=== PATIENT | female | born 1950 | race Caucasian/White ===

== ENCOUNTER 2018-12-29 17:50 | Emergency (ER) | payer MEDICARE ==
[~2018-12-29] VITALS: Ht 172.7 cm; Wt 91.0 kg
[2018-12-29 18:23] LABS: HEMATOCRIT 32.8 % (37.0-47.0); HEMOGLOBIN 10.6 g/dl (12.0-16.0); IMMATURE GRANULOCYTES 0.9 % (0.0-5.0); MEAN CELL VOLUME 87.9 fL CALC (80.0-100.0); MEAN CORPUSCULAR HGB 28.4 pG CALC (26.0-32.0); MEAN CORPUSCULAR HGB CONC 32.3 g/L CALC (32.0-36.0); NEUT# 12.32 thou/uL (2.00-7.15); RED BLOOD COUNT 3.73 mill/uL (4.20-5.60); RED CELL DISTRI WIDTH 15.6 % (11.5-15.5)
[2018-12-29 18:57] LABS: ALBUMIN 3.6 g/dL (3.2-5.0); ALKALINE PHOSPHATASE 457 u/l (38-126); ANION GAP 17 (6-22 (CALC)); BILIRUBIN, TOTAL 2.4 mg/dL (0.0-1.4); BUN 52 mg/dL (8-23); BUN/CREATININE RATIO 28 (12-20 (CALC)); CARBON DIOXIDE 29 mmol/l (22-30); CHLORIDE 93 mmol/l (95-108); CREATININE 1.9 mg/dL (0.5-1.0); ETHYL ALCOHOL 0 mg/dl (0-30); GFR 26 ML/MIN (>=60 (CALC)); GFR FOR AFR.AMER. 32 ML/MIN (>=60 (CALC)); MAGNESIUM 1.8 mg/dL (1.6-2.3); POTASSIUM 4.3 mmol/l (3.5-5.1); SODIUM 135 mmol/l (137-146); TOTAL PROTEIN 6.6 g/dL (6.3-8.2)
[2018-12-29 19:04] LABS: SGOT/AST 707 u/l (9-36)
[2018-12-29 19:08] LABS: MYOGLOBIN 247 ng/mL (0 - 62)
[2018-12-29 19:26] LABS: TSH, 3RD GENERATION 1.33 uIU/mL (0.47 - 4.68)
[2018-12-29 19:44] LABS: URINE BILIRUBIN - DIPSTICK NEGATIVE (NEGATIVE); URINE BLOOD DIPSTICK NEGATIVE (NEGATIVE); URINE COLOR YELLOW; URINE GLUCOSE - DIPSTICK NEGATIVE (NEGATIVE); URINE KETONE NEGATIVE (NEGATIVE); URINE NITRITE - DIPSTICK NEGATIVE (Negative); URINE PH 5.5 (4.5-8.0); URINE PROTEIN - DIPSTICK 100 mg/dL (NEG-TRACE); URINE SPECIFIC GRAVITY 1.025; URINE UROBILINOGEN - DIPSTICK 0.2 E.U./dL (0.2)
[2018-12-29 19:46] LABS: URINE LEUK ESTERASE SMALL (NEGATIVE)
[2018-12-29 19:56] LABS: BARBITURATES NEGATIVE (NEGATIVE); COCAINE NEGATIVE (NEGATIVE); METHADONE NEGATIVE (NEGATIVE); OXCYCODONE POSITIVE (NEGATIVE); TETRAHYDROCANNABIONOL NEGATIVE (NEGATIVE); TRICYLIC ANTIDEPRESSANTS NEGATIVE (NEGATIVE); URINE BACTERIA MANY hpf; URINE RBC 0-2 RBC/hpf (0-5); URINE SQUAMOUS EPITHELIAL CELL FEW EPI/hpf (0-FEW)
[2018-12-29] MEDS ORDERED: LANOXIN0.125 MG PO (21:22)
[2018-12-29] MEDS ORDERED: AVAPRO300 MG PO (21:22)
[2018-12-29] MEDS ORDERED: FUROSEMIDE20 MG PO (21:23)
[2018-12-29] MEDS ORDERED: CARVEDILOL3.125 MG PO (21:24)
[2018-12-29] MEDS ORDERED: ISOSORB MONO30 MG PO (21:24)
[2018-12-29] MEDS ORDERED: NORVASC5 M1 PO (21:24)
[2018-12-29] MEDS ORDERED: AVAPRO150 MG PO (21:25)
[2018-12-29] MEDS ORDERED: ALLOPURINOL100 MG PO (21:25)
[2018-12-29] MEDS ORDERED: LEVOTHYROXIN50 MCG PO (21:26)
[2018-12-29] MEDS ORDERED: NOVOLIN 70/30 SC ×2 (21:26→21:29)
[2018-12-29] MEDS ORDERED: BAYER ASPIRIN E81 MG PO (21:27)
[2018-12-29] MEDS ORDERED: LIPITOR20 MG PO (21:28)
[2018-12-29] MEDS ORDERED: PLAVIX75 MG PO (21:28)
[2018-12-29 23:45] VITALS: BP 124/64
== END 2018-12-29 23:45 | disposition short-term general hospital (02) ==
LOC: ED 17:50
PROVIDERS: Family Medicine
DX: K80.20 Calculus of gallbladder without cholecystitis without obstruction (principal); R74.8 Abnormal levels of other serum enzymes; E80.6 Other disorders of bilirubin metabolism; I10 Essential (primary) hypertension; E11.40 Type 2 diabetes mellitus with diabetic neuropathy, unspecified; R82.71 Bacteriuria; Z79.4 Long term (current) use of insulin; R53.1 Weakness

== ENCOUNTER 2021-03-03 11:39 | Emergency (ER) | payer MEDICARE ==
[~2021-03-03] VITALS: Ht 172.7 cm; Wt 106.0 kg
[~2021-03-03 11:39] MED LIST: ALLOPURINOL100 MG PO; AVAPRO150 MG PO; AVAPRO300 MG PO; BAYER ASPIRIN E81 MG PO; CARVEDILOL3.125 MG PO; FUROSEMIDE20 MG PO; ISOSORB MONO30 MG PO; LANOXIN0.125 MG PO; LEVOTHYROXIN50 MCG PO; LIPITOR20 MG PO; NORVASC5 M1 PO; NOVOLIN 70/30 SC; PLAVIX75 MG PO
[2021-03-03 12:22] LABS: HEMATOCRIT 33.1 % (37.0-47.0); HEMOGLOBIN 10.1 g/dl (12.0-16.0); IMMATURE GRANULOCYTES 0.2 % (0.0-5.0); MEAN CELL VOLUME 90.2 fL CALC (80.0-100.0); MEAN CORPUSCULAR HGB 27.5 pG CALC (26.0-32.0); MEAN CORPUSCULAR HGB CONC 30.5 g/dL CAL (32.0-36.0); NEUT# 15.56 thou/uL (2.00-7.15); RED BLOOD COUNT 3.67 mill/uL (4.20-5.60); RED CELL DISTRI WIDTH 17.9 % (11.5-15.5)
[2021-03-03 12:38] LABS: ALBUMIN 3.1 g/dL (3.2-5.0); CREATININE 1.2 mg/dL (0.5-1.0); TOTAL PROTEIN 6.4 g/dL (6.3-8.2)
[2021-03-03 12:40] LABS: BILIRUBIN, TOTAL 0.8 mg/dL (0.0-1.4); POTASSIUM 5.2 mmol/l (3.5-5.1)
[2021-03-03 13:27] LABS: URINE BILIRUBIN - DIPSTICK NEGATIVE (NEGATIVE); URINE BLOOD DIPSTICK TRACE-LYSED (NEGATIVE); URINE COLOR YELLOW; URINE GLUCOSE - DIPSTICK >=1000 mg/dL (NEGATIVE); URINE KETONE NEGATIVE (NEGATIVE); URINE LEUK ESTERASE NEGATIVE (NEGATIVE); URINE PROTEIN - DIPSTICK 100 mg/dL (NEG-TRACE); URINE UROBILINOGEN - DIPSTICK 0.2 E.U./dL (0.2)
[2021-03-03 13:30] LABS: URINE EPITHELIAL CELLS MODERATE EPI/hpf (0-FEW); URINE NITRITE - DIPSTICK NEGATIVE (Negative); URINE RBC 0-2 RBC/hpf (0-5)
[2021-03-03 17:36] LABS: HEMATOCRIT 32.6 % (37.0-47.0); HEMOGLOBIN 10.2 g/dl (12.0-16.0); IMMATURE GRANULOCYTES 0.3 % (0.0-5.0); MEAN CELL VOLUME 89.3 fL CALC (80.0-100.0); MEAN CORPUSCULAR HGB 27.9 pG CALC (26.0-32.0); MEAN CORPUSCULAR HGB CONC 31.3 g/dL CAL (32.0-36.0); NEUT# 17.12 thou/uL (2.00-7.15); RED BLOOD COUNT 3.65 mill/uL (4.20-5.60); RED CELL DISTRI WIDTH 17.8 % (11.5-15.5)
[2021-03-03 17:54] LABS: INTERNATIONAL NORMALIZED RATIO 1.1 RATIO (0.7-1.3)
[2021-03-03 19:11] VITALS: BP 168/72
== END 2021-03-03 19:11 | disposition short-term general hospital (02) ==
LOC: ED 11:39
PROVIDERS: Emergency Medicine
DX: I21.4 Non-ST elevation (NSTEMI) myocardial infarction (principal); I10 Essential (primary) hypertension; E11.40 Type 2 diabetes mellitus with diabetic neuropathy, unspecified; I48.91 Unspecified atrial fibrillation; E78.00 Pure hypercholesterolemia, unspecified; Z79.4 Long term (current) use of insulin; Z95.1 Presence of aortocoronary bypass graft; Z20.822 Contact with and (suspected) exposure to COVID-19
CPT/HCPCS: J1644

== ENCOUNTER 2021-04-23 07:07 | Emergency (ER) | payer MEDICARE ==
[2021-04-23] VITALS (23 sets, daily range): BP systolic 129–164; BP diastolic 55–86
[~2021-04-23] VITALS: Ht 172.7 cm; Wt 86.0 kg
[2021-04-23 08:08] LABS: HEMATOCRIT 33.9 % (37.0-47.0); HEMOGLOBIN 10.5 g/dl (12.0-16.0); IMMATURE GRANULOCYTES 0.3 % (0.0-5.0); MEAN CORPUSCULAR HGB 27.6 pG CALC (26.0-32.0); NEUT# 10.66 thou/uL (2.00-7.15); RED BLOOD COUNT 3.81 mill/uL (4.20-5.60); RED CELL DISTRI WIDTH 16.8 % (11.5-15.5)
[2021-04-23 08:38] LABS: BILIRUBIN, TOTAL 0.9 mg/dL (0.0-1.4); CREATININE 1.5 mg/dL (0.5-1.0); POTASSIUM 4.6 mmol/l (3.5-5.1); TOTAL PROTEIN 7.5 g/dL (6.3-8.2)
[2021-04-23 08:39] LABS: ALBUMIN 3.8 g/dL (3.2-5.0)
[2021-04-23] MEDS ORDERED: NOVOLIN N100 UNIT (10:29)
[2021-04-23] MEDS ORDERED: ISOSORB MONO30 MG PO (10:31)
[2021-04-23] MEDS ORDERED: ELIQUIS5 MG PO (10:32)
[2021-04-23] MEDS ORDERED: LIPITOR20 MG PO (10:33)
[2021-04-23] MEDS ORDERED: FARXIGA10 MG (11:15)
[2021-04-23] MEDS ORDERED: REGLAN10 MG PO (11:16)
[2021-04-23] MEDS ORDERED: HYDROCO/APAP1 TA9 PO (11:16)
[2021-04-23] MEDS ORDERED: PROTONIX40 M2 PO (11:16)
[2021-04-23] MEDS ORDERED: RANOLAZINE ER500 MG (11:17)
[2021-04-23] MEDS ORDERED: [UNRECOGNIZED DRUG - OTHER] PO (11:18)
== END 2021-04-23 12:47 | disposition short-term general hospital (02) ==
LOC: ED 07:07
PROVIDERS: Emergency Medicine
PROC: 0SSFXZZ Reposition Right Ankle Joint, External Approach (ICD-10-PCS; principal; 2021-04-23)
DX: S82.831A Other fracture of upper and lower end of right fibula, initial encounter for closed fracture (principal); S92.151A Displaced avulsion fracture (chip fracture) of right talus, initial encounter for closed fracture; I10 Essential (primary) hypertension; E11.40 Type 2 diabetes mellitus with diabetic neuropathy, unspecified; W18.30XA Fall on same level, unspecified, initial encounter; Y92.002 Bathroom of unspecified non-institutional (private) residence as the place of occurrence of the external cause; Z79.4 Long term (current) use of insulin; Z85.42 Personal history of malignant neoplasm of other parts of uterus; Z20.822 Contact with and (suspected) exposure to COVID-19

== ENCOUNTER 2021-05-08 13:42 | Emergency (ER) | payer MEDICARE ==
[2021-05-08] VITALS (20 sets, daily range): BP systolic 73–198; BP diastolic 25–152
[~2021-05-08] VITALS: Ht 172.7 cm; Wt 105.0 kg
[~2021-05-08 13:42] MED LIST changes: +ELIQUIS5 MG PO; +FARXIGA10 MG; +HYDROCO/APAP1 TA9 PO; +NOVOLIN N100 UNIT; +PROTONIX40 M2 PO; +RANOLAZINE ER500 MG; +REGLAN10 MG PO; +[UNRECOGNIZED DRUG - OTHER] PO
[2021-05-08 17:45] LABS: IMMATURE GRANULOCYTES 0.7 % (0.0-5.0); MEAN CORPUSCULAR HGB CONC 31.3 g/dL CAL (32.0-36.0); NEUT# 11.62 thou/uL (2.00-7.15); RED BLOOD COUNT 2.93 mill/uL (4.20-5.60); RED CELL DISTRI WIDTH 16.7 % (11.5-15.5)
[2021-05-08 17:47] LABS: HEMATOCRIT 25.2 % (37.0-47.0); HEMOGLOBIN 7.9 g/dl (12.0-16.0)
[2021-05-08 17:57] LABS: BILIRUBIN, TOTAL 0.6 mg/dL (0.0-1.4); TOTAL PROTEIN 6.7 g/dL (6.3-8.2)
[2021-05-08 18:02] LABS: CREATININE 5.8 mg/dL (0.5-1.0); POTASSIUM 6.3 mmol/l (3.5-5.1)
[2021-05-08] MEDS ORDERED: MULTI VIT PO (18:17)
[2021-05-08 20:07] LABS: URINE BILIRUBIN - DIPSTICK MODERATE (NEGATIVE); URINE BLOOD DIPSTICK LARGE (NEGATIVE); URINE COLOR BROWN; URINE GLUCOSE - DIPSTICK NEGATIVE (NEGATIVE); URINE KETONE 15 mg/dL (NEGATIVE); URINE PROTEIN - DIPSTICK >=300 mg/dL (NEG-TRACE); URINE SPECIFIC GRAVITY 1.025
[2021-05-08 20:08] LABS: URINE BACTERIA MODERATE hpf; URINE LEUK ESTERASE MODERATE (NEGATIVE); URINE NITRITE - DIPSTICK POSITIVE (Negative); URINE RBC TNTC RBC/hpf (0-5); URINE SQUAMOUS EPITHELIAL CELL FEW EPI/hpf (0-FEW)
[2021-05-08 21:27] LABS: CREATININE 5.6 mg/dL (0.5-1.0); POTASSIUM 5.6 mmol/l (3.5-5.1)
== END 2021-05-08 23:10 | disposition short-term general hospital (02) ==
LOC: ED 13:42 → ED-I 16:50 → ED 16:50 → ED-I 18:09 → ED 23:10
PROVIDERS: Nurse Practitioner
DX: D62 Acute posthemorrhagic anemia (principal); R31.9 Hematuria, unspecified; R19.5 Other fecal abnormalities; N17.9 Acute kidney failure, unspecified; E87.5 Hyperkalemia; I12.9 Hypertensive chronic kidney disease with stage 1 through stage 4 chronic kidney disease, or unspecified chronic kidney disease; E11.22 Type 2 diabetes mellitus with diabetic chronic kidney disease; N18.9 Chronic kidney disease, unspecified; E11.40 Type 2 diabetes mellitus with diabetic neuropathy, unspecified; S82.201D Unspecified fracture of shaft of right tibia, subsequent encounter for closed fracture with routine healing; S82.401D Unspecified fracture of shaft of right fibula, subsequent encounter for closed fracture with routine healing; X58.XXXD Exposure to other specified factors, subsequent encounter; R82.71 Bacteriuria; Z79.4 Long term (current) use of insulin; Z85.42 Personal history of malignant neoplasm of other parts of uterus
CPT/HCPCS: J1956